=== PATIENT | female | born 1955 | race Caucasian/White ===

== ENCOUNTER → 2019-05-17 | Outpatient (CLI) | payer BC ==
[~2019-05-17] MED LIST: ANTIVERT 25MG25 MG PO; DRAMAMINE 50MG50 MG PO; GLUCOSAMIN 500; IBU400 MG PO; ONE DAILY1 TA1 PO; PROBIOTIC FORMU1 CAP PO; VITAMIN D1000 IU PO
== END ==
LOC: MC.RAD 08:05
DX: Z12.31 Encounter for screening mammogram for malignant neoplasm of breast (principal)